=== PATIENT | female | born 1935 | race Native Hawaiian/Other Pacific Islander ===

== ENCOUNTER 2020-09-21 10:39 | Outpatient (CLI) | payer BC, OTHER | END 2020-09-21 19:38 | disposition home or self-care (01) | LOC: INF 10:39 | PROVIDERS: ATTEND Internal Medicine | DX: Z23 Encounter for immunization (principal) ==

== ENCOUNTER 2020-10-19 07:33 | Outpatient (CLI) | payer BC, OTHER | END 2020-10-19 19:19 | disposition home or self-care (01) | LOC: INF 07:33 | PROVIDERS: ATTEND Internal Medicine | DX: Z23 Encounter for immunization (principal) | CPT/HCPCS: 96372 ==